=== PATIENT | male | born 1980 | race Two or more races ===

== ENCOUNTER 2019-09-16 04:34 | Emergency (ER) | payer SELFPAY ==
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
[2019-09-16] MEDS ORDERED: Sodium Chloride 0.9% 10 ML Syringe FLUSH PRN (05:06)
[2019-09-16] MEDS ORDERED: LORazepam 2 MG/ML SDV IVPUSH ONE ×2 (05:07→05:35)
[2019-09-16] MEDS ORDERED: Sodium Chloride 0.9% 1,000 ML IV SCH (05:15)
--- NOTE | 2019-09-16 07:18 | PCM.SN.2 ---
- Free Text/Narrative Note: I assumed care of this patient at [address] Ramos. 38-year-old male with apparent methamphetamine abuse and intoxication who presented with hallucinations and psychomotor agitation who has received normal saline 1 L bolus IV and Ativan 4 mg IV over time. He is sleeping now he is comfortably. His pulse rate is 104 and his blood pressure is 107 systolic and his O2 saturation is normal. The plan will be to continue to monitor the patient closely and allow his intoxication to clear and hopefully be able to discharge the patient later this morning. 9:45 AM: Patient remains vitally stable with a heart rate in the 80s and blood pressure pressure in the 110 systolic range. I was able to awaken the patient and after some brief confusion, he oriented to place, person, time and situation. He denies any chest pain. He is denying any thoughts of self-harm and is quite calm now. He still seems to be rather somnolent and we will continue observing the patient for now. The plan will still be to hopefully discharge the patient later this morning. 12:45 PM: Patient is awake and alert. He has amylases the bathroom with out difficulty. He is complaining of right knee pain that he reports he has had for about the past 1-2 months. He reports he saw a physician for this and was told that "everything was OK". He reports he still has continued pain over medial aspect of the right knee that he rates as about a 5-6/10 and it does get worse at times. He has no other complaints at this time. Exam of the patient's right knee does not show any gross instability and there was a negative Marita and negative Octavia. I feel the patient is stable for discharge at this point. I did discuss with him the need for him to stop using methamphetamine and abusing alcohol and to seek substance abuse counseling. I will also place a referral to Maricruz Fajardo NP, orthopedic clinic for follow-up of his right knee problem.
== END 2019-09-16 13:20 | disposition home or self-care (01) ==
LOC: FB.ED 04:34
DX: F15.121 Other stimulant abuse with intoxication delirium (principal); M25.561 Pain in right knee; G89.29 Other chronic pain
CPT/HCPCS: 36415; 80053; 80305; 80307; 85025; 93005; 96374; 99285; J2060; J7030; 93010; 99284

== ENCOUNTER 2019-09-17 08:41 | Emergency (ER) | payer SELFPAY ==
--- NOTE | 2019-09-17 09:49 | EDM.PDOC ---
ED HPI GENERAL MEDICAL PROBLEM - General Chief Complaint: Chest Pain Stated Complaint: CHEST PAIN Time Seen by Provider: 09/17/19 09:00 Source of Information: Reports: Patient History Limitations: Reports: No Limitations - History of Present Illness INITIAL COMMENTS - FREE TEXT/NARRATIVE: Patient presented to the ED because of left sided chest pain,sharp,3/10 and is more pleuritic type. There is no associated N/V, dyspnea or diaphoresis. He also c/o chronic rt knee pain. He was seen in [facility] yesterday because of alcohol intoxication, and amphetamine use. Left Upper Anterior Chest Pain Score (Numeric/FACES): 6 - Related Data Allergies Allergy/AdvReac Type Severity Reaction Status Date / Time No Known Allergies Allergy Verified 09/18/19 00:33 Home Meds: Home Meds NK [No Known Home Meds] 09/18/19 [History] Past Medical History - Past Health History Medical/Surgical History: Denies Medical/Surgical History Musculoskeletal History: Reports: Other (See Below) Other Musculoskeletal History: right knee pain Social & Family History - Caffeine Use Caffeine Use: Reports: Coffee, Energy Drinks, Soda, Tea - Living Situation & Occupation Living situation: Reports: Single ED ROS GENERAL - Review of Systems Review Of Systems: See Below Constitutional: Reports: No Symptoms HEENT: Reports: No Symptoms Respiratory: Reports: No Symptoms Cardiovascular: Reports: Chest Pain Endocrine: Reports: No Symptoms GI/Abdominal: Reports: No Symptoms : Reports: No Symptoms Musculoskeletal: Reports: No Symptoms Skin: Reports: No Symptoms ED EXAM, GENERAL - Physical Exam Exam: See Below Exam Limited By: No Limitations General Appearance: Alert, No Apparent Distress Eye Exam: Bilateral Eye: PERRL Ears: Normal External Exam, Normal Canal Nose: Normal Inspection, Normal Mucosa, No Blood Throat/Mouth: Normal Inspection, Normal Lips, Normal Teeth Head: Atraumatic, Normocephalic Neck: Normal Inspection, Supple, Non-Tender, Full Range of Motion Respiratory/Chest: No Respiratory Distress, Lungs Clear, Normal Breath Sounds, No Accessory Muscle Use Cardiovascular: Normal Peripheral Pulses, Regular Rate, Rhythm, No Edema, No JVD , No Murmur GI/Abdominal: Normal Bowel Sounds, Soft, Non-Tender, No Organomegaly Back Exam: Normal Inspection, Full Range of Motion Extremities: Normal Inspection, Normal Range of Motion Course - Vital Signs Text/Narrative:: EKG/Labs was discussed with he patient and verbalized full understanding ASA 324 mg po x1 EKG-NSR Trop-neg Toradol 30 mg IV x1 Last Recorded V/S: Last Vital Signs Temp 36.4 C 09/17/19 08:58 Pulse 103 H 09/17/19 08:58 Resp 18 09/17/19 08:58 BP 110/68 09/17/19 08:58 Pulse Ox 98 09/17/19 08:58 - Orders/Labs/Meds Labs: Laboratory Tests 09/17/19 09/17/19 09/17/19 Range/Units 09:15 09:15 09:20 WBC 8.7 (4.5-12.0) X10-3/uL RBC 4.73 (4.30-5.75) x10(6)uL Hgb 15.8 (13.5-17.8) g/dL Hct 45.5 (30.0-51.3) % MCV 96.3 H (80-96) fL MCH 33.4 (27.7-33.6) pg MCHC 34.7 (32.2-35.4) g/dL RDW 11.9 (11.5-15.5) % Plt Count 272 (125-369) X10(3)uL MPV 8.2 (7.4-10.4) fL Neut % (Auto) 60.7 (46-82) % Lymph % (Auto) 29.2 (13-37) % [place] % (Auto) 6.3 (4-12) % Eos % (Auto) 3 (1.0-5.0) % Baso % (Auto) 1 (0-2) % Neut # (Auto) 5.3 (1.6-8.3) # Lymph # (Auto) 2.5 (0.6-5.0) # [place] # (Auto) 0.5 (0.0-1.3) # Eos # (Auto) 0.3 (0.0-0.8) # Baso # (Auto) 0.1 (0.0-0.2) # Sodium 140 (135-145) mmol/L Potassium 4.2 (3.5-5.3) mmol/L Chloride 105 D (100-110) mmol/L Carbon Dioxide 23 (21-32) mmol/L BUN 13 (7-18) mg/dL Creatinine 1.1 (0.70-1.30) mg/dL Est Cr Clr Drug Dosing TNP Estimated GFR (MDRD) > 60 (>60) BUN/Creatinine Ratio 11.8 (9-20) Glucose 99 (80-116) mg/dL Calcium 8.0 L (8.6-10.2) mg/dL Total Bilirubin 0.3 (0.1-1.3) mg/dL AST 31 H D (5-25) IU/L ALT 32 (12-36) U/L Alkaline Phosphatase 104 (56-112) IU/L Troponin I 36.2 (4.0-60.3) pg/mL Total Protein 7.6 (6.0-8.0) g/dL Albumin 3.6 (3.5-5.2) g/dL Globulin 4.0 g/dL Albumin/Globulin Ratio 0.9 Departure - Departure Time of Disposition: 09:50 Disposition: Home, Self-Care 01 Condition: Good Clinical Impression: Atypical chest pain Instructions: Nonspecific Chest Pain, Adult Referrals: PCP,None [Primary Care Provider] - Forms: ED Department Discharge Additional Instructions: please read discharge instructions on atypical chest pain take ibuprofen 800 mg with tylenol 1000 mg every 8 hours as needed for pain follow up as needed Sepsis Event Note - Evaluation Sepsis Screening Result: No Definite Risk - Focused Exam Date Exam was Performed: 09/18/19 Time Exam was Performed: 17:52
== END 2019-09-17 09:59 | disposition home or self-care (01) ==
LOC: FB.ED 08:41
DX: R07.89 Other chest pain (principal)
CPT/HCPCS: 36415; 80053; 84484; 85025; 93005; 99283; 99284-25

== ENCOUNTER 2019-09-18 00:16 | Emergency (ER) | payer SELFPAY ==
[2019-09-18] MEDS ORDERED: Ketorolac 60 MG/2 ML SDV IM ONE (01:33)
--- NOTE | 2019-09-18 02:57 | EDM.PDOC ---
ED HPI GENERAL MEDICAL PROBLEM - General Chief Complaint: Syncope Stated Complaint: BLACKING OUT Time Seen by Provider: 09/18/19 00:55 Source of Information: Reports: Patient History Limitations: Reports: No Limitations - History of Present Illness INITIAL COMMENTS - FREE TEXT/NARRATIVE: Patient presented to the ED because of a brief syncopal episode. He was feeling dizzy and then passed out. He apparently hit his head on the floor and then woke up later c/o headache. He also c/o of left sided chest pain which is pleuritic. He had a cardiac work up yesterday which was negative. He also rt knee pain and is supposed to be taking toradol but he doesn't know that he had a prescription because he is always intoxicated with alcohol and amphetamines. 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: Acetaminophen Posterior head, neck, L buddhism, L chest Pain Score (Numeric/FACES): 8 - Related Data Allergies Allergy/AdvReac Type Severity Reaction Status Date / Time No Known Allergies Allergy Verified 09/18/19 00:33 Home Meds: Home Meds NK [No Known Home Meds] 09/18/19 [History] Past Medical History - Past Health History Medical/Surgical History: Denies Medical/Surgical History Musculoskeletal History: Reports: Other (See Below) Other Musculoskeletal History: right knee pain Neurological History: Reports: Concussion, Head Trauma Psychiatric History: Reports: Addiction, Depression Other Psychiatric History: hx etoh abuse - Infectious Disease History Infectious Disease History: Reports: Chicken Pox - Past Surgical History HEENT Surgical History: Reports: Oral Surgery Neurological Surgical History: Reports: Other (See Below) Other Neurological Surgeries/Procedures: plates in head after head injury/skull fx Social & Family History - Family History Family Medical History: Noncontributory - Tobacco Use Smoking Status *Q: Current Every Day Smoker Years of Tobacco use: 15 Packs/Tins Daily: 0.7 - Caffeine Use Caffeine Use: Reports: Coffee, Energy Drinks, Soda, Tea - Alcohol Use Days Per Week of Alcohol Use: 7 Number of Drinks Per Day: 12 Total Drinks Per Week: 84 - Recreational Drug Use Recreational Drug Use: Yes Recreational Drug Type: Reports: Methamphetamine - Living Situation & Occupation Living situation: Reports: Single ED ROS GENERAL - Review of Systems Review Of Systems: See Below Constitutional: Reports: No Symptoms HEENT: Reports: Eye Discharge Respiratory: Reports: No Symptoms Cardiovascular: Reports: No Symptoms Endocrine: Reports: No Symptoms GI/Abdominal: Reports: No Symptoms : Reports: No Symptoms Musculoskeletal: Reports: No Symptoms Skin: Reports: No Symptoms Neurological: Reports: No Symptoms Psychiatric: Reports: No Symptoms Hematologic/Lymphatic: Reports: No Symptoms Immunologic: Reports: No Symptoms - Physical Exam Exam: See Below Exam Limited By: No Limitations General Appearance: Alert Ears: Normal External Exam Nose: Normal Inspection Throat/Mouth: Normal Inspection Head Exam: Atraumatic Neck: Normal Inspection Respiratory/Chest: No Respiratory Distress Cardiovascular: Normal Peripheral Pulses, Regular Rate, Rhythm GI/Abdominal: Normal Bowel Sounds, Soft, Non-Tender Neuro Exam (Abbreviated): Alert, Oriented, CN II-XII Intact Course - Vital Signs Text/Narrative:: headt CT neg toradol 60 mg IM x1 EKG-NSR second troponin-neg Last Recorded V/S: Last Vital Signs Temp 36.8 C 09/18/19 00:25 Pulse 107 H 09/18/19 03:00 Resp 18 09/18/19 03:00 BP 129/76 09/18/19 03:00 Pulse Ox 100 09/18/19 03:00 - Orders/Labs/Meds Orders: Active Orders 24 hr Category Date Time Status EKG Documentation Completion [RC] ASDIRECTED Care 09/18/19 02:25 Active Head wo Cont [CT] Stat Exams 09/18/19 02:01 Taken EKG 12 Lead [EK] Routine Ther 09/18/19 02:25 Ordered Labs: Laboratory Tests 09/18/19 Range/Units 01:35 Troponin I 27.5 (4.0-60.3) pg/mL Meds: Medications Discontinued Medications Generic Name Dose Route Start Last Admin Trade Name Pollo PRN Reason Stop Dose Admin Ketorolac Tromethamine 60 mg 09/18/19 01:33 09/18/19 01:45 Toradol IM 09/18/19 01:34 60 mg ONETIME ONE Administration Departure - Departure Time of Disposition: 02:55 Disposition: Home, Self-Care 01 Condition: Good Clinical Impression: Vasovagal syncope, Headache, Right knee pain - Discharge Information Instructions: Acute Knee Pain, Adult, Occipital Neuralgia, Syncope, Easy-to- Read Referrals: PCP,None [Primary Care Provider] - Forms: ED Department Discharge Additional Instructions: please read discharge instructions on headache, knee pain, vasovagal syncope rest for the night increase oral fluids continue toradol for your knee pain follow up with orth with regard to your right knee pain Sepsis Event Note - Evaluation Sepsis Screening Result: No Definite Risk - Focused Exam Date Exam was Performed: 09/18/19 Time Exam was Performed: 17:19 - My Orders Last 24 Hours: My Active Orders 09/18/19 02:01 Head wo Cont [CT] Stat 09/18/19 02:25 EKG Documentation Completion [RC] ASDIRECTED EKG 12 Lead [EK] Routine - Assessment/Plan Last 24 Hours: My Active Orders 09/18/19 02:01 Head wo Cont [CT] Stat 09/18/19 02:25 EKG Documentation Completion [RC] ASDIRECTED EKG 12 Lead [EK] Routine
== END 2019-09-18 03:11 | disposition home or self-care (01) ==
LOC: FB.ED 00:16
DX: R55 Syncope and collapse (principal); R51 Headache; M25.561 Pain in right knee; F17.210 Nicotine dependence, cigarettes, uncomplicated
CPT/HCPCS: 36415; 70450; 84484; 93005; 96372; 99284-25; J1885